=== PATIENT | male | born 1945 | race Caucasian/White ===

== ENCOUNTER 2017-05-29 10:23 | Emergency (ER) | payer OTHER ==
[~2017-05-29] VITALS: Ht 182.9 cm; Wt 78.7 kg
[~2017-05-29 10:23] MED LIST: ASPCH81X PO; CHOL100010 PO; CLOP1TAB5 PO; FISHOIL PO; LPT/40 PO; MAGN500T4 PO; METO25TA56 PO; MULTTAB58 PO; NTRGSL/4 UT; PRED10TA PO
[2017-05-29 10:26] VITALS: BP 154/73; PULSE 55; TEMP 36.5; O2SAT 99; Ht 182.9 cm; Wt 78.7 kg
--- NOTE | 2017-05-29 10:54 | EMERGENCY ROOM VISIT NOTE ---
ED Visit Note First contact with patient: 10:34 The patient was seen and examined with Yovani Carr PA-C. I agree with the history, physical and findings. Please see the note for disposition and details.
[2017-05-29] MEDS ORDERED: DOXYCYCLINE HYCLATE 100 MG CAP PO ONE (11:00)
[2017-05-29] MEDS ORDERED: CHOL1000 PO (11:01)
--- NOTE | 2017-05-29 11:03 | EMERGENCY ROOM VISIT NOTE ---
History First contact with patient: 10:34 Chief Complaint: BITE Stated Complaint: TICK BITE History of Present Illness The patient is a 72 year old male who presents to the Emergency Room with complaints of a tick bite to his left breast. The patient reports that he was out cutting firewood 2 days ago. He noticed the tick this morning when showering. He believes that the tick has been attached for some time between 36 -48 hours. The patient was able to remove the tick this morning, but does not know if he removed the entire tick. He did bring the tick with him. He reports mild bleeding from the site. He rates his discomfort a 2 out of 10. Tetanus immunization is up-to-date. Review of Systems 10 system review was performed and was negative except for pertinent positives and negatives as indicated in history of present illness Past Medical/Surgical History Medical Problems: (1) Carotid Artery Occlusion W O Cerebral Infarction (2) FRACTURE ACETABULUM-CLOS (3) FX CLAVICLE NOS-CLOSED (4) HERPES ZOSTER NOS (5) HISTORY OF TOBACCO USE (6) HYPERTENSION NOS (7) Sciatica Surgical Problems: (1) H/O carotid endarterectomy (2) History of heart artery stent Family History FH: cancer FHx: heart disease Social History Smoking Status: Current Every Day Smoker Alcohol Use: occasionally Drug Use: none Marital Status: Occupation Status: employed Current/Historical Medications Scheduled Aspirin (Aspirin Chewable), 81 MG PO DAILY Atorvastatin (Lipitor), 80 MG PO QAM Cholecalciferol (Vitamin D), 2,000 INTER.UNIT PO DAILY Clopidogrel Bisulfate (Plavix), 75 MG PO QAM Fish Oil ([place]-3), 1 CAP PO TID Metoprolol Tartrate (Lopressor) (Lopressor), 12.5 MG PO BID Multiple Vitamin (Multivitamin), 1 TAB PO DAILY Nitroglycerin (Nitrostat), 0.4 MG UT PRN Prednisone Tab (Prednisone), 10 MG PO UD Scheduled PRN Magnesium Oxide (Mg Supplement (Magnesium), 500 MG PO DAILY PRN for MUSCLE CRAMPS Physical Exam Vital Signs Date Time Temp Pulse Resp B/P (MAP) Pulse Ox O2 Delivery O2 Flow Rate FiO2 18 10:26 36.5 55 18 154/73 99 Room Air Physical Exam CONSTITUTIONAL: Healthy and well nourished. Alert and oriented X 3 with positive affect. HEENT: Normocephalic, atraumatic. Pupils equal, round and reactive. NECK: Full active range of motion without discomfort. INTEGUMENTARY: Examination of the left inferomedial breast shows a mild scab formation from where the tick was removed. There is no peripheral induration. A venous bailey is visualized. There is no significant tenderness to palpation. NEUROLOGIC: No focal neurologic deficits noted. Medical Decision & Procedures ED Course Patient history and physical exam were performed. Nurse's notes were reviewed. Vital signs were reviewed and were normal. Visualization of the tick confirms that it is a deer tick. The patient will be administered a prophylactic dose of doxycycline 200 mg orally. A bacitracin dressing was applied. The patient was instructed to watch for any rash consistent with erythema migrans. He was instructed to follow-up with his PCP if this develops. The patient was also encouraged to watch for any signs of local infection of the breast. The patient was happy with plan of care, voiced understanding of all discharge instructions, and denied any pain at the time of discharge. The patient was also seen and examined by Dr. Sung, ED attending physician who agrees with workup and plan of care. Medical Decision Medication Reconcilliation Current Medication List: was personally reviewed by hi Blood Pressure Screening Patient's blood pressure: Normal blood pressure Impression Primary Impression: Tick bite of left male breast Departure Information Dispostion Home / Self-Care Forms HOME CARE DOCUMENTATION FORM, IMPORTANT VISIT INFORMATION Patient Instructions My [facility] [employer] Private Additional Instructions You have been treated with a one-time dose of doxycycline which should significantly reduce your risk for Lyme's disease. Watch for any developing bull's-eye rash on the body over the next month. If this does develop, follow up with your family doctor for further treatment. Keep the wound covered with a bandage and antibiotic ointment until it heals. Problem Qualifiers Primary Impression: Tick bite of left male breast Encounter type: initial encounter Qualified Codes: S20.162A - Insect bite ( nonvenomous) of breast, left breast, initial encounter; W57.XXXA - Bitten or stung by nonvenomous insect and other nonvenomous arthropods, initial encounter
== END 2017-05-29 11:05 | disposition home or self-care (01) ==
LOC: C.EDB 10:25 → C.EDD 11:05
DX: S20.162A Insect bite (nonvenomous) of breast, left breast, initial encounter (principal); W57.XXXA Bitten or stung by nonvenomous insect and other nonvenomous arthropods, initial encounter; Y92.821 Forest as the place of occurrence of the external cause; I25.10 Atherosclerotic heart disease of native coronary artery without angina pectoris; I10 Essential (primary) hypertension; M54.30 Sciatica, unspecified side; F17.210 Nicotine dependence, cigarettes, uncomplicated; Z80.9 Family history of malignant neoplasm, unspecified; Z82.49 Family history of ischemic heart disease and other diseases of the circulatory system; Z79.82 Long term (current) use of aspirin; Z79.02 Long term (current) use of antithrombotics/antiplatelets; Z79.52 Long term (current) use of systemic steroids; Z79.899 Other long term (current) drug therapy